=== PATIENT | female | born 1995 | race Caucasian/White ===

== ENCOUNTER 2019-06-08 08:08 | Emergency (ER) | payer SELFPAY ==
[2019-06-08] MEDS ORDERED: MVI, ADULT NO.4 WITH VIT K 10 ML, THIAMINE HCL IV 100 MG in 0.9 % SODIUM CHLORIDE 1000M... IV SCH ×3 (08:30)
--- NOTE | 2019-06-08 08:42 | Emergency Department Record ---
History of Present Illness - General Chief Complaint: Tremor Stated Complaint: zoe Time Seen by Provider: 06/08/19 08:22 Source: Patient Mode of Arrival: Wheelchair Limitations: No limitations - History of Present Illness Initial comments: pt is c/o trembling and shaking lately and worse this am.. she feels lightheaded. she frequently drinks, she stated 2 beers. she denies other symptoms -: Hour(s) Location: Upper extremity Consistency: Intermittent Improves with: None Worsens with: None Associated Symptoms: Weakness Treatments Prior to Arrival: None - Jono Coma Scale Eye Response: (4) Open spontaneously Motor Response: (6) Obeys commands Verbal Response: (5) Oriented Jono Total: 15 - Related Data Home Medications Medication Instructions Recorded Confirmed Last Taken Fluoxetine HCl [Prozac] 20 mg PO DAILY 06/08/19 06/08/19 06/07/19 Hydroxyzine HCl [Atarax] 25 mg PO QID PRN 06/08/19 06/08/19 Unknown Previous Rx's Medication Instructions Recorded Lorazepam [Ativan] 0.5 mg PO Q6HR PRN #10 tablet 06/08/19 Allergies Allergy/AdvReac Type Severity Reaction Status Date / Time phenobarbital Allergy SWELLING Verified 06/08/19 08:11 (GENERAL) sulfamethoxazole AdvReac NAUSEA AND Verified 06/08/19 08:11 [From Bactrim] VOMITING trimethoprim [From Bactrim] AdvReac NAUSEA AND Verified 06/08/19 08:11 VOMITING Travel/Exposure Screening - Travel/Exposure Within Last 30 Days Have you traveled within the last 30 days?: No - Travel/Exposure Within Last Year Have you traveled outside the [place] in the last year?: No - Additonal Travel/Exposure Details Have you been exposed to anyone with a communicable illness?: No - Travel Symptoms Symptom Screening: None Review of Systems Reviewed: No additional complaints except as noted below Constitutional: Reports: As per HPI. Denies: Chills, Fever, Malaise, Night sweats, Weakness, Weight change Eyes: Reports: As per HPI. Denies: Eye discharge, Eye pain, Photophobia, Vision change ENT: Reports: As per HPI. Denies: Congestion, Ear pain, Epistaxis, Throat pain Respiratory: Reports: As per HPI, Cough. Denies: Dyspnea, Hemoptysis, Stridor, Wheezes Cardiovascular: Reports: As per HPI. Denies: Arrhythmia, Chest pain, Dyspnea on exertion, Edema, Murmurs, Orthopnea, Palpitations, Syncope Endocrine: Reports: As per HPI. Denies: Fatigue, Polydipsia, Polyuria Gastrointestinal: Reports: As per HPI. Denies: Abdominal pain, Constipation, Diarrhea, Hematemesis, Hematochezia, Melena, Nausea, Vomiting Genitourinary: Reports: As per HPI. Denies: Abnormal menses, Discharge, Dysuria, Incontinence, Retention, Urgency Musculoskeletal: Reports: As per HPI. Denies: Arthralgia, Back pain, Myalgia, Neck pain Skin: Reports: As per HPI. Denies: Bruising, Change in color, Change in hair/nails, Lesions Neurological: Reports: As per HPI, Tremors. Denies: Abnormal gait, Confusion, Headache, Numbness, Paresthesias, Seizure, Tingling, Vertigo, Weakness Psychiatric: Reports: As per HPI. Denies: Anxiety, Auditory hallucinations, Depression, Homicidal thoughts, Suicidal thoughts, Visual hallucinations Hematological/Lymphatic: Reports: As per HPI. Denies: Anemia, Blood Clots, Easy bleeding, Easy bruising, Swollen glands Past Medical History - SOCIAL HISTORY Smoking Status: Never smoker Alcohol Use: Heavy Drug Use: None - RESPIRATORY Hx Respiratory Disorders: Yes Hx Asthma: Yes - CARDIOVASCULAR Hx Cardio Disorders: No - NEURO Hx Neuro Disorders: Yes Hx Seizures: Yes (as an ) - GI Hx GI Disorders: No - Hx Genitourinary Disorders: No - ENDOCRINE Hx Endocrine Disorders: No - MUSCULOSKELETAL Hx Musculoskeletal Disorders: No - PSYCH Hx Psych Problems: Yes Hx Anxiety: Yes Hx Depression: Yes - HEMATOLOGY/ONCOLOGY Hx Hematology/Oncology Disorders: No Family Medical History Any Significant Family History?: No Physical Exam - General General Appearance: Alert, Oriented x3, Cooperative, Mild distress - Head Head exam: Normal inspection - Eye Eye exam: Normal appearance, PERRL, EOMI Pupils: Normal accommodation - ENT ENT exam: Normal exam, Mucous membranes moist, Normal external ear exam, Normal orophraynx Ear exam: Normal external inspection. negative: External canal tenderness Nasal Exam: Normal inspection. negative: Discharge, Sinus tenderness Mouth exam: Normal external inspection, Tongue normal Teeth exam: Normal inspection. negative: Dental caries Throat exam: Normal inspection. negative: Tonsillar erythema, Tonsillar exudate - Neck Neck exam: Normal inspection, Full ROM. negative: Tenderness - Respiratory Respiratory exam: Normal lung sounds bilaterally. negative: Respiratory distress - Cardiovascular Cardiovascular Exam: Regular rate, Normal rhythm, Normal heart sounds - GI/Abdominal GI/Abdominal exam: Soft, Normal bowel sounds. negative: Tenderness - Rectal Rectal exam: Deferred - exam: Deferred - Extremities Extremities exam: Normal inspection, Full ROM, Normal capillary refill. negative: Tenderness - Back Back exam: Reports: Normal inspection, Full ROM. Denies: Muscle spasm, Rash noted, Tenderness - Neurological Neurological exam: Alert, CN II-XII intact, Normal gait, Oriented X3, Other (tremors) - Psychiatric Psychiatric exam: Normal affect, Normal mood - Skin Skin exam: Dry, Intact, Normal color, Warm Course Vital Signs 06/08/19 08:14 Temperature 98.7 F Pulse Rate 92 H Respiratory 16 Rate Blood Pressure 119/80 - Reevaluation(s) Reevaluation #1: 06/08/19 13:28 pt feels better. pt obviously drinks more then 2 beers a day. i discussed the perils of heavy drinking with her. she doesnt want rehab but states she will taper her drinking down. Medical Decision Making - Lab Data Result diagrams: 06/08/19 08:40 06/08/19 08:40 Disposition Disposition: Discharge Clinical Impression: Alcohol abuse Disposition: Home, Self-Care Condition: (1) Good Instructions: Abuse of Alcohol (ED), At-Risk Alcohol Use (ED), Alcohol Withdrawal (ED), Alcohol Dependence (ED), Alcohol Use Disorder (ED) Additional Instructions: follow up with family doctor. return sooner if worse. taper alcohol. Prescriptions: Lorazepam [Ativan] 0.5 mg PO Q6HR PRN #10 tablet PRN Reason: Anxiety Forms: Patient Portal Access Quality - Quality Measures Quality Measures: N/A - Blood Pressure Screening Does Patient Have Any of the Following: No Blood Pressure Classification: Pre-Hypertensive BP Reading Systolic Measurement: 119 Diastolic Measurement: 80 Screening for High Blood Pressure: < Pre-Hypertensive BP, F/U Documented > [[id number]] Pre-Hypertensive Follow-up Interventions: Follow-up with rescreen every year.
[2019-06-08 08:52] LABS: ABSOLUTE NEUTROPHIL COUNT 2.58; BASO % 1.7 % (0-6); EOS % 3.8 % (0-6); GRAN % 53.9 % (47-80); HEMATOCRIT 43.4 % (35.0-47.0); HEMOGLOBIN 14.9 gm/dl (11.6-16.0); MEAN CORPUSCULAR HEMOGLOBIN 30.2 pg (27-33); MEAN CORPUSCULAR HGB CONC 34.3 g/dl (32-36); MEAN PLATELET VOLUME 8.7 fl (7.4-10.4); MONO % 8.6 % (0-9); PLATELET COUNT 404 K/uL (130-400); RED BLOOD COUNT 4.93 M/uL (3.80-5.40); RED CELL DISTRIBUTION WIDTH 12.5 % (11.5-14.5); WHITE BLOOD COUNT W/O DIFF 4.8 K/uL (4.2-12.2)
[2019-06-08 09:01] LABS: BLOOD UREA NITROGEN 6 mg/dL (6-20); CREATININE 0.6 mg/dL (0.5-0.9); EST GLOMERULAR FILTRATION RATE > 60 mL/min
[2019-06-08 09:02] LABS: TOTAL PROTEIN 7.5 g/dL (6.6-8.7)
[2019-06-08 09:04] LABS: GLUCOSE,RANDOM 75 mg/dL (74-109)
[2019-06-08 09:06] LABS: ALT/SGPT 26 U/L (<33); AST/SGOT 28 U/L (10.0-35.0)
[2019-06-08 09:07] LABS: ALB/GLOB RATIO 1.8 (1.1-1.8); ALBUMIN 4.8 g/dL (4.0-5.0); ALCOHOL 0.186 g/dL (0-0.010); ALKALINE PHOSPHATASE 50 U/L (35-104)
[2019-06-08] MEDS ORDERED: LORAZEPAM 2 MG/ML VIAL IV ONE (09:09)
[2019-06-08 13:02] LABS: URINE APPEARANCE CLEAR; URINE BILIRUBIN NEGATIVE (NEGATIVE); URINE BLOOD NEGATIVE (NEGATIVE); URINE COLOR YELLOW; URINE GLUCOSE (UA) NEGATIVE (NEGATIVE); URINE KETONE 40 mg/dL (NEGATIVE); URINE LEUKOCYTE ESTERASE NEGATIVE (NEGATIVE); URINE NITRITE NEGATIVE (NEGATIVE); URINE PROTEIN NEGATIVE (NEGATIVE); URINE UROBILINOGEN 0.2 E.U./dL (0.20 - 1.00)
[2019-06-08 13:06] LABS: AMPHETAMINE SCREEN URINE NOT DETECTED; BARBITURATE SCREEN URINE NOT DETECTED; BENZODIAZEPINE SCREEN URINE NOT DETECTED; COCAINE SCREEN URINE NOT DETECTED; METHADONE SCREEN URINE NOT DETECTED; METHAMPHETAMINE SCREEN NOT DETECTED; OPIATE SCREEN URINE NOT DETECTED; OXYCODONE SCREEN URINE NOT DETECTED; PHENCYCLIDINE SCREEN URINE NOT DETECTED; PROPOXYPHENE SCREEN URINE NOT DETECTED; THC SCREEN URINE NOT DETECTED; TRICYCLIC ANTIDEPRESSANT SCRN NOT DETECTED
== END 2019-06-08 14:03 | disposition home or self-care (01) ==
LOC: ER 08:08
DX: F10.229 Alcohol dependence with intoxication, unspecified (principal); R42 Dizziness and giddiness; R53.1 Weakness; R25.1 Tremor, unspecified; Y90.6 Blood alcohol level of 120-199 mg/100 ml
CPT/HCPCS: 80053; 80305; 80320; 81003; 84443; 85025; 96365; 96375; 99284; J3411; J7030